=== PATIENT | female | born 1965 | race Caucasian/White ===

== ENCOUNTER 2017-10-08 11:39 | Emergency (ER) | payer BC ==
[~2017-10-08] VITALS: Ht 157.5 cm; Wt 125.0 kg
[~2017-10-08 11:39] MED LIST: Aspirin E.C. PO; Cardizem CD,Cartia X PO; Levaquin PO; Lopressor PO; MONOPRIL20 MG PO; Omega III EPA + DHA PO; Tylenol Extra Streng PO
[2017-10-08 13:59] VITALS: BP 135/70
== END 2017-10-08 14:00 | disposition home or self-care (01) ==
LOC: EME 11:39
DX: M17.11 Unilateral primary osteoarthritis, right knee (principal); R60.0 Localized edema; I10 Essential (primary) hypertension; R01.1 Cardiac murmur, unspecified; Z90.710 Acquired absence of both cervix and uterus
CPT/HCPCS: 73564; 99281; 99283